=== PATIENT | female | born 1940 | race African-American/Black ===

== ENCOUNTER → 2016-06-07 | Outpatient (CLI) | payer OTHER ==
[~2016-06-07] MED LIST: ACTOS 45 MG45 M1 PO; ASPIRIN81 M2 PO; DILTIAZEM 24HR240 M1 PO; FLEXERIL PO; LANTUSSOLASTAR SUBQ; LIPITOR 20 MG T20 M1 PO; LISINOPRIL10 MG; LISINOPRIL20 MG PO; LISINOPRIL5 MG PO; NOVOLOG100 UNIT/1; SIMVASTATIN20 MG PO; VICODIN 5-5001 EACH PO
== END ==
LOC: ULTRA 07:20
DX: E04.2 Nontoxic multinodular goiter (principal); E01.0 Iodine-deficiency related diffuse (endemic) goiter

== ENCOUNTER → 2019-09-28 | Outpatient (CLI) | payer OTHER | LOC: SJCVC 13:54 | PROVIDERS: ATTEND Internal Medicine | DX: R94.31 Abnormal electrocardiogram [ECG] [EKG] (principal); I47.1 Supraventricular tachycardia; E78.5 Hyperlipidemia, unspecified; I12.9 Hypertensive chronic kidney disease with stage 1 through stage 4 chronic kidney disease, or unspecified chronic kidney disease; E11.22 Type 2 diabetes mellitus with diabetic chronic kidney disease; N18.9 Chronic kidney disease, unspecified; Z79.82 Long term (current) use of aspirin; Z79.899 Other long term (current) drug therapy; Z79.4 Long term (current) use of insulin ==

== ENCOUNTER → 2019-11-09 | Outpatient (CLI) | payer OTHER | LOC: SJCVCIMAG 10-16 11:34 | PROVIDERS: ATTEND Internal Medicine | DX: I11.9 Hypertensive heart disease without heart failure (principal); I47.1 Supraventricular tachycardia; E78.5 Hyperlipidemia, unspecified ==

== ENCOUNTER 2019-12-17 12:42 | Emergency (ER) | payer OTHER ==
[~2019-12-17] VITALS: Ht 170.2 cm; Wt 62.1 kg
[~2019-12-17 12:42] MED LIST changes: -NOVOLOG100 UNIT/1; +NOVOLOG100 UNIT/1 SUBQ
[2019-12-17 14:33] LABS: ABSOLUTE NEUTROPHILS 6.3 thou/uL (1.4-8.2); BASOPHILS 0.8 % (0.0-2.0); EOSINOPHILS 0.9 % (0.0-3.0); HEMATOCRIT 39.9 % (37.0-47.0); HEMOGLOBIN 12.9 gm/dL (12.0-15.0); MCH 29.1 pg (26.0-34.0); MCHC 32.4 g/dL (28.0-37.0); MCV 89.9 fL (80.0-100.0); MONOCYTES 6.2 % (1.0-8.0); PLATELET COUNT 182 thou/uL (150-400); POLYS 75.1 % (36.0-66.0); RBC 4.44 mil/uL (4.20-5.00); RDW 14.3 % (10.5-14.5); WBC 8.4 thou/uL (4.0-11.0)
[2019-12-17 14:46] LABS: ANION GAP 8 mmol/L (7-16); BUN 25 mg/dL (7-18); CALCIUM 9.2 mg/dL (8.5-10.1); CHLORIDE 101 mmol/L (98-107); CO2 26 mmol/L (21-32); CREATININE 1.7 mg/dL (0.6-1.0); GLUCOSE 361 mg/dL (74-106); POTASSIUM 4.2 mmol/L (3.5-5.1); SODIUM 135 mmol/L (136-145)
[2019-12-17 14:55] LABS: TROPONIN-I <0.06 ng/mL (<0.06)
[2019-12-17 15:16] LABS: ALBUMIN 3.5 g/dL (3.4-5.0); DIRECT BILIRUBIN < 0.1 mg/dL (<0.1-0.2); LIPASE 79 U/L (73-393); SGOT 17 U/L (15-37); SGPT 24 U/L (30-65); TOTAL BILIRUBIN 0.2 mg/dL (0.2-1.0)
--- NOTE | 2019-12-17 15:22 | EKG ---
[facility] [place] [address] ELECTROCARDIOGRAM REPORT Name: LATIA RAMIREZ Room #: REG [facility]#: [id number] Admission: 12/17/19 Attend Phys: Discharge: Date of : 38 Report #: [id number] THIS REPORT FOR: cc: RENETTA - Susie family physician/PCP RENETTA - Susie family physician/PCP Roe Grey MD [facility] THIS REPORT FOR: //name// [facility] ED Test Date: 2019-12-17 Test Time: 12:51:24 Pat Name: LATIA RAMIREZ Department: Room: Gender: F Care Giver: [facility] : 1940 Requested By: Shubham Veloz Order Number: [id number] MD: Roe Grey Measurements Intervals [place] Rate: 73 P: 81 WA: 181 QRS: 26 QRSD: 101 T: 71 QT: 458 QTc: 505 Interpretive Statements Sinus rhythm Probable left atrial enlargement Low voltage, precordial leads Probable anteroseptal infarct, old Prolonged QT interval Compared to ECG 05/06/2014 16:28:31 Low QRS voltage now present Myocardial infarct finding now present Prolonged QT interval now present Electronically Signed On 12-17-2019 15:22:02 [employer] by Roe Grey [email or web address] <ELECTRONICALLY SIGNED> By: Roe Grey MD, FACC 12/17/19 1522 [id number] Roe Grey MD, FACC /EPI
[2019-12-17 17:35] VITALS: BP 128/58
== END 2019-12-17 17:35 | disposition home or self-care (01) ==
LOC: ER 12:42
PROVIDERS: Emergency Medicine
DX: R07.89 Other chest pain (principal); I10 Essential (primary) hypertension; E11.9 Type 2 diabetes mellitus without complications; Z90.710 Acquired absence of both cervix and uterus; Z90.89 Acquired absence of other organs; Z79.899 Other long term (current) drug therapy; Z79.82 Long term (current) use of aspirin; Z79.4 Long term (current) use of insulin

== ENCOUNTER → 2019-12-25 | Outpatient (CLI) | payer OTHER | LOC: SJCVC 13:03 | PROVIDERS: ATTEND Internal Medicine | DX: R94.31 Abnormal electrocardiogram [ECG] [EKG] (principal); I12.9 Hypertensive chronic kidney disease with stage 1 through stage 4 chronic kidney disease, or unspecified chronic kidney disease; E11.22 Type 2 diabetes mellitus with diabetic chronic kidney disease; N18.9 Chronic kidney disease, unspecified; I47.1 Supraventricular tachycardia; Z79.4 Long term (current) use of insulin ==

== ENCOUNTER → 2020-04-02 | Outpatient (CLI) | payer OTHER | LOC: SJCVC 10:51 | PROVIDERS: ATTEND Internal Medicine | DX: I47.1 Supraventricular tachycardia (principal); R94.31 Abnormal electrocardiogram [ECG] [EKG]; E78.5 Hyperlipidemia, unspecified; E11.22 Type 2 diabetes mellitus with diabetic chronic kidney disease; I12.9 Hypertensive chronic kidney disease with stage 1 through stage 4 chronic kidney disease, or unspecified chronic kidney disease; N18.9 Chronic kidney disease, unspecified; I48.0 Paroxysmal atrial fibrillation; Z90.710 Acquired absence of both cervix and uterus; Z98.890 Other specified postprocedural states; Z79.4 Long term (current) use of insulin; Z79.82 Long term (current) use of aspirin; Z79.899 Other long term (current) drug therapy ==

== ENCOUNTER → 2020-07-02 | Outpatient (CLI) | payer OTHER | LOC: SJCVC 13:36 | PROVIDERS: ATTEND Internal Medicine | DX: R94.31 Abnormal electrocardiogram [ECG] [EKG] (principal); I47.1 Supraventricular tachycardia; E78.5 Hyperlipidemia, unspecified; E11.22 Type 2 diabetes mellitus with diabetic chronic kidney disease; I12.9 Hypertensive chronic kidney disease with stage 1 through stage 4 chronic kidney disease, or unspecified chronic kidney disease; N18.9 Chronic kidney disease, unspecified; Z79.82 Long term (current) use of aspirin; Z79.4 Long term (current) use of insulin; Z79.899 Other long term (current) drug therapy ==

== ENCOUNTER → 2021-01-06 | Outpatient (CLI) | payer OTHER | LOC: RAD 11:35 | PROVIDERS: ATTEND Internal Medicine | DX: M54.50 Low back pain, unspecified (principal) ==

== ENCOUNTER → 2021-01-06 | Outpatient (CLI) | payer OTHER | LOC: SJCVC 10:28 | PROVIDERS: ATTEND Internal Medicine | DX: R94.31 Abnormal electrocardiogram [ECG] [EKG] (principal); I47.1 Supraventricular tachycardia; E78.5 Hyperlipidemia, unspecified; M54.50 Low back pain, unspecified; I12.9 Hypertensive chronic kidney disease with stage 1 through stage 4 chronic kidney disease, or unspecified chronic kidney disease; E11.22 Type 2 diabetes mellitus with diabetic chronic kidney disease; N18.9 Chronic kidney disease, unspecified; Z90.710 Acquired absence of both cervix and uterus; Z98.890 Other specified postprocedural states; Z79.82 Long term (current) use of aspirin; Z79.899 Other long term (current) drug therapy ==

== ENCOUNTER → 2021-02-18 | Outpatient (CLI) | payer OTHER ==
[~2021-02-18] VITALS: Ht 170.2 cm; Wt 63.0 kg
[~2021-02-18] MED LIST changes: +CARDIZEM CD 18180 M3 PO; +LANTUS SUBQ; +LISINOPRIL10 MG PO; +NEURONTIN 300M300 M2 PO; +NEURONTIN100 MG PO; +ZOCOR 10 MG TAB10 M1 PO
[2021-02-18 08:28] VITALS: BP 170/82
--- NOTE | 2021-02-18 09:07 | NUR ---
Pain Clinic Assessment: 1. History of Osteoarthritis: History of Rheumatoid Arthritis: 2. Height: 5 ft. 7 in. 170.2 cm. Weight: 138.8 lb. oz. 62.959 kg. Patient's BMI: 21.7 3. Vital Signs: BP: 170/82 Pulse: 79 Resp: 14 Temp: 02 Sat: 99 ECG Mon: 4. Pain Intensity: 8 5. Fall Risk: Dizziness: N Needs help standing or walking: N Fallen in the last 3 months: N Fall risk comments: 6. Patient on Blood Thinner: None 7. History of Hypertension: Y 8. Opioid Therapy greater than 6 weeks: Opiate Contract Signed: 9. Risk Assessment Tool Provided: 0 LOW RISK 10. Functional Assessment Tool: 11. Recreational Drug Use: Never Drug Type: Tobacco Use: Never Smoker Tobacco Type: Amount or Packs/day: How Many Years: Alcohol Use: No Frequency: Quant:
== END ==
LOC: PAIN 07:01
PROVIDERS: ATTEND Anesthesiology Pain Medicine
DX: M19.90 Unspecified osteoarthritis, unspecified site (principal); M06.9 Rheumatoid arthritis, unspecified; I10 Essential (primary) hypertension